=== PATIENT | female | born 2000 | race African-American/Black ===

== ENCOUNTER 2018-06-15 17:50 | Emergency (ER) | payer BC, MEDICAID ==
[~2018-06-15] VITALS: Ht 175.3 cm; Wt 82.0 kg
[2018-06-15] MEDS ORDERED: SODIUM CHLORIDE 0.9% 1,000 ML IV ONE (19:45)
[2018-06-15] MEDS ORDERED: METOCLOPRAMIDE HCL 10MG/2ML VIAL IV ONE (19:45)
[2018-06-15] MEDS ORDERED: KETOROLAC 15MG/ML VIAL IV ONE (19:45)
[2018-06-15 21:55] VITALS: BP 109/62
== END 2018-06-15 21:57 | disposition home or self-care (01) ==
LOC: ER 17:50
DX: G43.909 Migraine, unspecified, not intractable, without status migrainosus (principal); R11.0 Nausea
CPT/HCPCS: 81025; 96374; 96375; 99283; J1885; J2765; J7030

== ENCOUNTER 2019-10-26 12:16 | Emergency (ER) | payer BC, MEDICAID ==
[~2019-10-26] VITALS: Ht 172.7 cm; Wt 73.0 kg
[2019-10-26] MEDS ORDERED: SODIUM CHLORIDE 0.9% 1,000 ML IV ONE (13:28)
[2019-10-26] MEDS ORDERED: ONDANSETRON HCL 4MG/2ML INJ IV ONE (13:30)
[2019-10-26] MEDS ORDERED: ACETAMINOPHEN 325MG TABLET PO PRN (13:30)
[2019-10-26 14:02] LABS: BASOPHILS % 0.6 % (0.0-2.0); EOSINOPHILS % 0.4 % (0.0-5.0); HEMATOCRIT. 34.3 % (36.0-48.0); HEMOGLOBIN. 11.5 g/dL (12.0-16.0); LYMPHOCYTES % 23.7 % (20.0-50.0); MEAN CORPUSCULAR HEMOGLOBIN 29.1 pg (28.0-32.0); MEAN CORPUSCULAR VOLUME 86.7 fL (81.0-99.0); MEAN PLATELET VOLUME 9.4 fl (7.4-10.4); MONOCYTES % 5.4 % (2.0-8.0); NEUTROPHILS % 69.9 % (40.0-76.0); PLATELET 342 x1000/uL (130-400); RED BLOOD CELL COUNT 3.96 mill/uL (4.2-5.4); RED CELL DISTRIBUTION WIDTH 13.4 % (11.6-14.6)
[2019-10-26 14:04] LABS: CHLORIDE 107 mEq/L (98-107)
[2019-10-26 14:26] LABS: B-HCG QUANTITATIVE 45140 mIU/mL (<3)
[2019-10-26 14:44] LABS: CLARITY URINE CLEAR (CLEAR); COLOR URINE YELLOW (YELLOW); KETONES URINE NEGATIVE (NEGATIVE); LEUKOCYTE ESTERASE URINE NEGATIVE (NEGATIVE); NITRITE URINE NEGATIVE (NEGATIVE); OCCULT BLOOD URINE TRACE (NEGATIVE); PH URINE 7.5 (4.5-8.0); PROTEIN URINE NEGATIVE (NEGATIVE); SPECIFIC GRAVITY URINE 1.014 (1.005-1.030); UROBILINOGEN URINE 0.2 E.U./dL (0.2-1.0)
[2019-10-26 17:27] VITALS: BP 118/68
== END 2019-10-26 17:30 | disposition home or self-care (01) ==
LOC: ER 12:35
DX: O26.892 Other specified pregnancy related conditions, second trimester (principal); R51 Headache; O23.12 Infections of bladder in pregnancy, second trimester; R03.0 Elevated blood-pressure reading, without diagnosis of hypertension; Z3A.17 17 weeks gestation of pregnancy
CPT/HCPCS: 36415; 70450; 76805; 76817; 80053; 81003; 81025; 84702; 85025; 93005; 96374; 99285; J2405; J7030

== ENCOUNTER 2021-10-14 09:53 | Emergency (ER) | payer BC, MEDICAID ==
[~2021-10-14] VITALS: Ht 172.7 cm; Wt 91.0 kg
[2021-10-14] MEDS ORDERED: KETOROLAC 60MG/2ML VIAL IM STA (10:32)
[2021-10-14] MEDS ORDERED: METHYLPREDNISOLONE SOD SUCC 125 MG/2 ML VIAL IM STA (10:32)
[2021-10-14] MEDS ORDERED: PENICILLIN G BENZATHINE 1,200,000 UNITS/2ML SYR IM ONE (10:45)
[2021-10-14] MEDS ORDERED: AMOX-494 PO (11:47)
[2021-10-14] MEDS ORDERED: IBUP-2029 PO (11:47)
[2021-10-14 12:22] VITALS: BP 123/76
== END 2021-10-14 12:22 | disposition home or self-care (01) ==
LOC: ER 10:00
DX: J03.90 Acute tonsillitis, unspecified (principal); R00.0 Tachycardia, unspecified
CPT/HCPCS: 93005; 96372; 99284; J0561; J1885; J2930